=== PATIENT | female | born 1955 | race Two or more races ===

== ENCOUNTER 2019-01-21 22:17 | Inpatient (IN) | payer MEDICAID, OTHER ==
[~2019-01-21] VITALS: Ht 154.9 cm; Wt 72.6 kg
[~2019-01-21 22:17] MED LIST: CALC600T12 PO; LETR2.5T7 PO; [UNRECOGNIZED DRUG - OTHER] PO
[2019-01-21] MEDS ORDERED: DILTIAZEM HCL 50 MG IV ONE ×2 (22:57→23:13)
[2019-01-21] MEDS ORDERED: DILTIAZEM HCL 50 MG IV IV ONE (23:00)
[2019-01-21] MEDS ORDERED: DILTIAZEM HCL IV 125 MG in IV NS 0.9% 100 ML IV PRN (23:00)
--- NOTE | 2019-01-21 23:03 | NUR ---
BIB SELF WITH DAUGHTER. HR OF 148. NO RESPIRATORY DISTRESS NOTED. BLOOP PRESSURE WNL.
[2019-01-21] MEDS ORDERED: DILTIAZEM HCL 25 MG IV ONE (23:13)
[2019-01-21 23:19] LABS: BASOPHILS % (AUTO) 0.6 % (0.0-2.0); EOSINOPHILS % (AUTO) 0.5 % (0.0-6.0); HEMATOCRIT 47 % (33-45); HEMOGLOBIN 16.1 g/dL (11.5-14.8); LYMPHOCYTES % (AUTO) 43.8 % (20.0-44.0); MEAN CORPUSCULAR HGB CONC 34 g/dl (31.0-36.0); MEAN CORPUSCULAR VOLUME 91 fL (82-100); MONOCYTES # (AUTO) 0.8 /CMM (0.1-1.30); MONOCYTES % (AUTO) 18.3 % (2.0-12.0); NEUTROPHILS # (AUTO) 1.6 /CMM (1.8-8.9); NEUTROPHILS % (AUTO) 36.8 % (43.0-81.0); PLATELET COUNT (AUTO) 193 /CMM (150-450); RED BLOOD CELL COUNT(AUTO) 5.16 MIL/uL (4.0-5.2); WHITE BLOOD COUNT (AUTO) 4.5 K/uL (4.3-11.0)
[2019-01-21 23:23] LABS: CALCIUM, SERUM 8.7 mg/dL (8.5-10.1); CARBON DIOXIDE 24 mmol/L (21-32); CHLORIDE 103 mmol/L (98-107); GLUCOSE 125 mg/dL (74-106); POTASSIUM 3.3 mmol/L (3.5-5.1); SODIUM SERUM 138 mmol/L (136-145); UREA NITROGEN, BLOOD 15 mg/dL (7-18)
[2019-01-21 23:36] LABS: B-TYPE NATRIURETIC PEPTIDE 71 PG/ML (0-125)
[2019-01-21] MEDS ORDERED: CT SWABBABLE VALVE TRANS SET 1 EA INFUS.SET MC ONE (23:43)
[2019-01-21] MEDS ORDERED: IV NS 0.9% 250 ML IV ONE (23:43)
[2019-01-21] MEDS ORDERED: IOHEXOL-350 100 ML VIAL IV ONE (23:43)
--- NOTE | 2019-01-21 23:51 | NUR ---
PT ON CT CHEST.
[2019-01-22] VITALS (20 sets, daily range): BP systolic 88–128; BP diastolic 50–77
[2019-01-22] MEDS ORDERED: AMLO5TAB9 PO (00:56)
[2019-01-22] MEDS ORDERED: PERI8TAB4 PO (00:56)
[2019-01-22 01:04] LABS: LYMPHOCYTES % (MANUAL) 41 % (16-48); MONOCYTES % (MANUAL) 12 % (0-11.0); NEUTROPHILS % (MANUAL) 47 (42-76)
--- NOTE | 2019-01-22 01:23 | NUR ---
PT TRANSFERRED TO ICU BED 259, STABLE CONDITION VIA ACLS PROTOCOL.
[2019-01-22] MEDS ORDERED: MAGNESIUM HYDROXIDE 30 ML UDC PO PRN (01:30)
[2019-01-22] MEDS ORDERED: AMIODARONE 900 MG in IV D5W 482 ML IV PRN (01:30)
[2019-01-22] MEDS ORDERED: ENOXAPARIN SODIUM 60 MG/0.6 ML DISP.SYRIN SQ SCH (01:30)
[2019-01-22] MEDS ORDERED: ACETAMINOPHEN 325 MG TABLET PO PRN (01:30)
[2019-01-22] MEDS ORDERED: ONDANSETRON HCL/PF 4 MG/2 ML VIAL IVP PRN (01:30)
[2019-01-22] MEDS ORDERED: POTASSIUM CHLORIDE 20 MEQ TAB.PRT.SR PO ONE (01:30)
[2019-01-22] MEDS ORDERED: MORPHINE SULFATE INJ 2 MG/ML DISP.SYRIN IV PRN (01:30)
--- NOTE | 2019-01-22 02:18 | NUR ---
PLANTING MATERIAL REMOVER. ADMISSION. PT BEING ADMITTED IN ICU ROOM 259, PT IS AWAKE, ALERT FOLLOW COMMANDS, APPLICATIONS SUPPORT ENGINEER SHOWING NSR. IV LT AC 18G, .CARDIZEM DRIP STARTED FROM ER 10MG. DRIP TITRATED AND STOPPED, WILL CONTINUE TO MONITOR
--- NOTE | 2019-01-22 04:35 | NUR ---
READING COACH. AM CARE, PT SLEPT WELL DURING SHIFT. STUDENT SUPPORT ADVISOR SHOWING NSR. IV LT AC 20G. SALINE LOCK, OXYGEN 2L VIA NASAL CANNULA, SAT 96%NO ACUTE DISTRESS NOTED, PT DENIES CHEST PAIN, WILL CONTINUE TO MONITOR VITALS,
[2019-01-22 04:51] LABS: BASOPHILS % (AUTO) 0.5 % (0.0-2.0); EOSINOPHILS % (AUTO) 0.4 % (0.0-6.0); HEMATOCRIT 44 % (33-45); HEMOGLOBIN 14.9 g/dL (11.5-14.8); LYMPHOCYTES # (AUTO) 2.1 /CMM (0.8-4.8); LYMPHOCYTES % (AUTO) 49.1 % (20.0-44.0); MEAN CORPUSCULAR HGB CONC 34 g/dl (31.0-36.0); MEAN CORPUSCULAR VOLUME 91 fL (82-100); MONOCYTES # (AUTO) 0.6 /CMM (0.1-1.30); MONOCYTES % (AUTO) 14.5 % (2.0-12.0); NEUTROPHILS # (AUTO) 1.5 /CMM (1.8-8.9); NEUTROPHILS % (AUTO) 35.5 % (43.0-81.0); PLATELET COUNT (AUTO) 188 /CMM (150-450); RED BLOOD CELL COUNT(AUTO) 4.81 MIL/uL (4.0-5.2); WHITE BLOOD COUNT (AUTO) 4.4 K/uL (4.3-11.0)
[2019-01-22 05:12] LABS: CHOLESTEROL 157 mg/dL (<200); HDL CHOLESTEROL 28 mg/dL (40-60); LDL 125 mg/dL (0-99); THYROID STIMULATING HORMONE 0.797 uIU/mL (0.358-3.74); TRIGLYCERIDES 77 mg/dL (30-150)
[2019-01-22 05:30] LABS: ALANINE AMINOTRANSFERASE 24 U/L (12-78); ALBUMIN 3.3 g/dL (3.4-5.0); ALKALINE PHOSPHATASE 68 U/L (46-116); ASPARTATE AMINOTRANSFERASE 20 U/L (15-37); BILIRUBIN,TOTAL 0.4 mg/dL (0.2-1.0); CALCIUM, SERUM 8.2 mg/dL (8.5-10.1); CARBON DIOXIDE 23 mmol/L (21-32); CHLORIDE 105 mmol/L (98-107); CREATININE 0.8 mg/dL (0.6-1.3); GLUCOSE 102 mg/dL (74-106); MAGNESIUM 1.6 mg/dL (1.8-2.4); PHOSPHORUS 3.7 mg/dL (2.5-4.9); POTASSIUM 3.7 mmol/L (3.5-5.1); SODIUM SERUM 139 mmol/L (136-145); TOTAL PROTEIN, SERUM 7.1 g/dL (6.4-8.2); UREA NITROGEN, BLOOD 11 mg/dL (7-18)
--- NOTE | 2019-01-22 07:00 | NUR ---
RN NOTES RECEIVED PT ON BED, A/Ox4, ON 2L O2 N/C , RESPIRATION EVEN AND UNLABORED, NO SOB NOTED , ON TELE SR HR IN 60'S , R AC IV SITE G 20 CLEAN, DRY AND INTACT , SUPPORTIVE FAMILY AT THE BEDSIDE, SR UP x3, CALL LIGHT WITHIN EASY REACH, BED LOCKED AND IN LOWEST POSITION,CONTINUE TO MONITOR .
[2019-01-22] MEDS: Magnesium 1GM/D5W 100ML PREMIX 100 ML IV SCH ×2 (07:32→08:39)
[2019-01-22] MEDS: PANTOPRAZOLE 40 MG TABLET.DR PO SCH (08:04)
[2019-01-22] MEDS: CALCIUM CARBONATE 500 MG TAB.CHEW PO SCH ×2 (08:04→18:00)
[2019-01-22] MEDS: LETROZOLE 2.5 MG TABLET PO SCH (08:05)
[2019-01-22] MEDS: AMLODIPINE BESYLATE 5 MG TABLET PO SCH (08:05)
[2019-01-22] MEDS ORDERED: RIVAROXABAN 10 MG TABLET PO SCH ×2 (09:00→17:00)
[2019-01-22] MEDS ORDERED: CODEINE/PROMETHAZINE HCL 5 ML UDC PO PRN (12:30)
--- NOTE | 2019-01-22 13:00 | NUR ---
RN NOTES PT REFUSED AMOXICILLIN , STATED WANTS ZITHROMAX. DR GOMEZ NOTIFED , AWAITING FOR ORDER.
[2019-01-22] MEDS: PROMETHAZINE HCL SYRUP 6.25 MG/5 ML UDC PO PRN ×2 (13:25→19:53)
[2019-01-22] MEDS: AMOXICILLIN TRIHYDRATE 250 MG CAPSULE PO SCH ×4 (13:25→22:03)
--- NOTE | 2019-01-22 13:30 | NUR ---
RN NOTES PT TOOK HER AMOXICILLIN.
--- NOTE | 2019-01-22 15:55 | NUR ---
RN NOTES PT TRANSFERRED TO ROOM 104 VIA ACLS PROTOCOL , TOMI GALINA , IN STABLE CONDITION . REPORT GIVEN TO ANA YUEN FOR CONTINUITY OF CARE .
--- NOTE | 2019-01-22 19:14 | NUR ---
TD RN NOTES RECEIVED PT ON BED. A/O X 4. ON NASAL CANNULA 2LPM NO RESPIRATORY DISTRESS NOTED. IV ACCESS ON RAC G 20 SL. ON TELE MONITOR SR 74. HEAD OF BED ELEVATED. SIDE RAILS UP. CALL LIGHT WITHIN REACH. BED ALARM ON. WILL CONTINUE TO MONITOR PT CLOSELY.
[2019-01-23] VITALS: BP 125/74
[2019-01-23 04:00] VITALS: BP 110/67
[2019-01-23] MEDS: AMOXICILLIN TRIHYDRATE 250 MG CAPSULE PO SCH ×3 (06:05→12:22)
[2019-01-23 06:10] LABS: BASOPHILS % (AUTO) 0.4 % (0.0-2.0); EOSINOPHILS % (AUTO) 1.2 % (0.0-6.0); HEMATOCRIT 43 % (33-45); HEMOGLOBIN 14.8 g/dL (11.5-14.8); LYMPHOCYTES # (AUTO) 1.8 /CMM (0.8-4.8); LYMPHOCYTES % (AUTO) 50.3 % (20.0-44.0); MEAN CORPUSCULAR HGB CONC 34 g/dl (31.0-36.0); MEAN CORPUSCULAR VOLUME 92 fL (82-100); MONOCYTES # (AUTO) 0.6 /CMM (0.1-1.30); MONOCYTES % (AUTO) 15.6 % (2.0-12.0); NEUTROPHILS # (AUTO) 1.2 /CMM (1.8-8.9); NEUTROPHILS % (AUTO) 32.5 % (43.0-81.0); PLATELET COUNT (AUTO) 180 /CMM (150-450); RED BLOOD CELL COUNT(AUTO) 4.72 MIL/uL (4.0-5.2); WHITE BLOOD COUNT (AUTO) 3.7 K/uL (4.3-11.0)
--- NOTE | 2019-01-23 06:14 | NUR ---
TD RN NOTES PT WEIGHT INITIAL WEIGHT 160LBS IN [place].
[2019-01-23 06:21] LABS: CALCIUM, SERUM 8.4 mg/dL (8.5-10.1); CREATININE 0.7 mg/dL (0.6-1.3); PHOSPHORUS 3.8 mg/dL (2.5-4.9); POTASSIUM 3.8 mmol/L (3.5-5.1)
--- NOTE | 2019-01-23 06:45 | NUR ---
TD RN NOTES LATE ADMIN ON ATBX, PT WANTS TO SLEEP
[2019-01-23 06:49] LABS: BAND % (MANUAL) 1 % (0.0-5.0); EOSINOPHILS % (MANUAL) 2 % (0-4); LYMPHOCYTES % (MANUAL) 54 % (16-48); MONOCYTES % (MANUAL) 11 % (0-11.0); NEUTROPHILS % (MANUAL) 32 (42-76)
--- NOTE | 2019-01-23 07:16 | NUR ---
TD RN NOTES NO ACUTE CHANGES NOTED DURING THE SHIFT. PROVIDED COMFORT AND SAFETY. NSR 60-65HR THROUGHOUT THE SHIFT. WILL ENDORSE TO THE AM NURSE FOR CONTINUITY OF CARE.
--- NOTE | 2019-01-23 07:45 | NUR ---
RN NOTE: RECEIVED PATIENT IN BED, ASLEEP BUT AROUSABLE TO NAME, REMAINED ALERT AND VERBALLY RESPONSIVE. DAUGHTER JENNI PRESENT AT THE BEDSIDE. RESPIRATION EVEN AND UNLABORED SATURATING 94-95% IN ROOM AIR. ON SENIOR FINANCIAL CONSULTANT SR HR= 61. DENIED ANY PAIN OR DISCOMFORT. (L) AC IC SITE NOTED PATENT AND INTACT. BED ON LOWEST POSITION AND LOCKED AT ALL TIMES. BREAKFAST WAS SERVED TO THE PATIENT. CALL LIGHT WITHIN REACH. NEEDS ANTICIPATED.
[2019-01-23] MEDS: PANTOPRAZOLE 40 MG TABLET.DR PO SCH (07:58)
[2019-01-23 08:00] VITALS: BP 105/54
[2019-01-23 08:04] VITALS: BP 105/54
[2019-01-23] MEDS: AMLODIPINE BESYLATE 5 MG TABLET PO SCH (08:04)
[2019-01-23] MEDS: LETROZOLE 2.5 MG TABLET PO SCH (08:04)
[2019-01-23] MEDS: CALCIUM CARBONATE 500 MG TAB.CHEW PO SCH (08:04)
[2019-01-23] MEDS ORDERED: DRONEDARONE HYDROCHLORIDE 400 MG TABLET PO SCH (10:00)
--- NOTE | 2019-01-23 10:30 | NUR ---
RN NOTE: DR. GILMORE PRESENT AT THE BEDSIDE AND SPOKE WITH THE PATIENT AND HER DAUGHTER, JENNI PRESENT AT THE BEDSIDE. STARTED THE PATIENT ON MULTAQ.
[2019-01-23] MEDS ORDERED: RIVA10TA PO (11:23)
[2019-01-23] MEDS ORDERED: DRON400T2 PO (11:23)
[2019-01-23] MEDS ORDERED: AMOX250C PO (11:23)
--- NOTE | 2019-01-23 11:30 | NUR ---
RN NOTE: DR. GOMEZ WAS IN THE PATIENT'S ROOM AND THE PATIENT'S GRANDDAUGHTER, KIT WAS PRESENT AT THE BEDSIDE. PATIENT REQUESTED TO BE DISCHARGE TODAY. MD WAS AWARE THAT PATIENT HAS BEEN SINUS RHYTHM ON THE CERTIFIED ART THERAPIST AND DR. GILMORE SAW THE PATIENT EARLIER AND STARTED HER ON MULTAQ. WITH ORDER TO DISCHARGE THE PATIENT TO HOME TODAY.
--- NOTE | 2019-01-23 12:50 | NUR ---
RN NOTE: PATIENT ATE HER LUNCH MEAL (100%) AND EXIT CARE WAS DONE. GAVE INSTRUCTIONS REGARDING THE PRESCRIPTION FOR DISCHARGE. PATIENT AND GRANDDAUGHTER KIT WAS INFORMED THAT THE PATIENT NEEDED TO REFILL THE MEDICATION TODAY ON THEIR PHARMACY OF CHOICE AND PATIENT NEEDED TO TAKE A DOSE OF THE XARELTO TODAY. PATIENT WAS GIVEN THE DOSE OF AMOXICILLIN PRIOR TO DISCHARGE. NO QUESTIONS REGARDING DISCHARGE INSTRUCTIONS. HANDED TO THE PATIENT'S GRANDDAUGHTER THE PAPERWORK INCLUDING THE CD FOR THE TEST DONE AND THE PRESCRIPTION THAT NEEDED FOR REFILL. PATIENT'S GRANDDAUGHTER, KIT SIGNED THE PAPERWORK AND ALL BELONGINGS WERE RELEASED TO THE PATIENT AND GRANDDAUGHTER. PATIENT'S (L) AC IV SITE WAS REMOVED, APPLIED PRESSURE AND SECURED WITH DRY GAUZE AND TAPE. NO BLEEDING WAS NOTED. PATIENT ON STABLE CONDITION UPON DISCHARGE AND WAS ACCOMPANIED BY HER GRANDDAUGHTER, KIT.
== END 2019-01-23 12:50 | disposition home or self-care (01) | DRG 201 ==
LOC: ER 22:30 → ICU 01-22 00:35 → TELE-TD 01-22 16:05 → MEDSG1 01-23 10:02
PROVIDERS: ADMIT Internal Medicine; ATTEND Internal Medicine
DX: I48.0 Paroxysmal atrial fibrillation (principal); B34.9 Viral infection, unspecified; E78.5 Hyperlipidemia, unspecified; E87.6 Hypokalemia; I10 Essential (primary) hypertension; Z79.811 Long term (current) use of aromatase inhibitors; Z85.3 Personal history of malignant neoplasm of breast
CPT/HCPCS: 36415; 71045-TC; 80048-TC; 80053-TC; 80061-TC; 83735-TC; 83880; 84100-TC; 84443-TC; 84484-TC; 85025-TC; 85730-TC; 87081-TC; 93307-TC; G0378; J1650; J3475; J3490; J7030; J7050; Q0169; Q9967

== ENCOUNTER 2019-01-30 05:10 | Emergency (ER) | payer OTHER ==
[~2019-01-30] VITALS: Ht 154.9 cm; Wt 72.6 kg
[~2019-01-30 05:10] MED LIST changes: +AMLO5TAB9 PO; +AMOX250C PO; +DRON400T2 PO; +PERI8TAB4 PO; +RIVA10TA PO; -[UNRECOGNIZED DRUG - OTHER] PO
--- NOTE | 2019-01-30 05:48 | NUR ---
PT BIBRA. C/O "HAVING CHEST PALPITATIONS THIS MORNING, SOB ALSO" -N./V -DIZZY AOX4. SOB NOTED. PT PLACED ON O2. AWARE.
[2019-01-30 05:52] LABS: BASOPHILS # (AUTO) 0.1 /CMM (0.0-0.2); HEMATOCRIT 44 % (33-45); HEMOGLOBIN 15.2 g/dL (11.5-14.8); LYMPHOCYTES # (AUTO) 3.7 /CMM (0.8-4.8); LYMPHOCYTES % (AUTO) 40.8 % (20.0-44.0); MEAN CORPUSCULAR HGB CONC 35 g/dl (31.0-36.0); MEAN CORPUSCULAR VOLUME 89 fL (82-100); MONOCYTES # (AUTO) 0.9 /CMM (0.1-1.30); NEUTROPHILS # (AUTO) 4.3 /CMM (1.8-8.9); NEUTROPHILS % (AUTO) 47.2 % (43.0-81.0); PLATELET COUNT (AUTO) 272 /CMM (150-450); RED BLOOD CELL COUNT(AUTO) 4.92 MIL/uL (4.0-5.2); WHITE BLOOD COUNT (AUTO) 9.1 K/uL (4.3-11.0)
[2019-01-30 06:00] LABS: CALCIUM, SERUM 9.3 mg/dL (8.5-10.1); CARBON DIOXIDE 24 mmol/L (21-32); CHLORIDE 106 mmol/L (98-107); CREATININE 0.9 mg/dL (0.6-1.3); GLUCOSE 112 mg/dL (74-106); POTASSIUM 3.5 mmol/L (3.5-5.1); SODIUM SERUM 142 mmol/L (136-145); UREA NITROGEN, BLOOD 17 mg/dL (7-18)
[2019-01-30] MEDS ORDERED: DILTIAZEM HCL 50 MG IV ONE (06:28)
[2019-01-30] MEDS ORDERED: DILTIAZEM HCL 25 MG IV IV ONE ×2 (06:30→07:00)
--- NOTE | 2019-01-30 07:22 | NUR ---
ENDORSEMENT RECEIVED FROM WHIT YUEN FOR TA[place]NA
[2019-01-30] MEDS ORDERED: DRONEDARONE HYDROCHLORIDE 400 MG TABLET PO ONE (07:30)
--- NOTE | 2019-01-30 09:43 | NUR ---
IV removed. Catheter intact and site benign. Pressure and 4x4 applied to site. No bleeding noted.Patient discharged to home in stable condition. Written and verbal after care instructions given. Patient verbalizes understanding of instruction.
[2019-01-30 09:45] VITALS: BP 118/80
== END 2019-01-30 09:45 | disposition home or self-care (01) ==
LOC: ER 05:11
DX: I48.2 Chronic atrial fibrillation (principal); I10 Essential (primary) hypertension; Z85.3 Personal history of malignant neoplasm of breast; Z98.890 Other specified postprocedural states
CPT/HCPCS: 36415; 71045; 80048; 84484 ×2; 85025; 85730; 93005 ×3; 96374; 99291; J3490

== ENCOUNTER → 2023-09-23 | Emergency (ER) | payer MEDICARE, OTHER ==
[~2023-09-23] VITALS: Ht 157.5 cm; Wt 72.6 kg
[~2023-09-23] MED LIST changes: +AMLO-212 PO; -AMLO5TAB9 PO; +CALC-1143 PO; -CALC600T12 PO; -DRON400T2 PO; +DRON400T6 PO; -LETR2.5T7 PO; +LETR2.5T8 PO
[2023-09-23 01:06] LABS: BASOPHILS % (AUTO) 0.2 % (0.0-2.0); EOSINOPHILS # (AUTO) 0.1 K/uL (0.0-0.7); EOSINOPHILS % (AUTO) 0.7 % (0.0-6.0); HEMATOCRIT 38 % (33-45); HEMOGLOBIN 12.6 g/dL (11.5-14.8); LYMPHOCYTES # (AUTO) 1.5 K/uL (0.8-4.8); LYMPHOCYTES % (AUTO) 14.4 % (20.0-44.0); MEAN CORPUSCULAR HEMOGLOBIN 31 PG (26.0-33.0); MEAN CORPUSCULAR HGB CONC 34 g/dl (31.0-36.0); MEAN CORPUSCULAR VOLUME 91 fL (82-100); MONOCYTES # (AUTO) 0.8 K/uL (0.1-1.30); MONOCYTES % (AUTO) 7.5 % (2.0-12.0); NEUTROPHILS # (AUTO) 7.9 K/uL (1.8-8.9); NEUTROPHILS % (AUTO) 77.2 % (43.0-81.0); PLATELET COUNT (AUTO) 180 K/uL (150-450); RED BLOOD CELL COUNT(AUTO) 4.11 MIL/uL (4.0-5.2); RED CELL DISTRIBUTION WIDTH 14.2 % (11.5-15.0); WHITE BLOOD COUNT (AUTO) 10.2 K/uL (4.3-11.0)
[2023-09-23 01:14] LABS: CALCIUM, SERUM 9.8 mg/dL (8.5-10.1); CARBON DIOXIDE 28 mmol/L (21-32); CHLORIDE 100 mmol/L (98-107); CREATININE 0.8 mg/dL (0.6-1.3); GLUCOSE 152 mg/dL (74-106); POTASSIUM 3.4 mmol/L (3.5-5.1); SODIUM SERUM 135 mmol/L (136-145); UREA NITROGEN, BLOOD 15 mg/dL (7-18)
[2023-09-23 02:49] VITALS: BP 141/83; TEMP 98.6; O2SAT 98
== END | disposition left against medical advice (07) ==
LOC: ER 00:18
DX: B34.9 Viral infection, unspecified (principal); R06.00 Dyspnea, unspecified; I10 Essential (primary) hypertension; Z20.822 Contact with and (suspected) exposure to COVID-19; Z98.890 Other specified postprocedural states; Z79.899 Other long term (current) drug therapy
CPT/HCPCS: 36415; 71045-TC; 80048-TC; 84484-TC; 85025-TC; C9803